=== PATIENT | female | born 1950 | race Asian ===

== ENCOUNTER → 2018-05-04 | Outpatient (CLI) | payer MEDICARE, OTHER | END | disposition home or self-care (01) | LOC: RADPV 08:25 | PROVIDERS: ATTEND Internal Medicine | DX: I07.1 Rheumatic tricuspid insufficiency (principal) | CPT/HCPCS: 93306 ==

== ENCOUNTER → 2018-05-08 | Outpatient (CLI) | payer MEDICARE, OTHER | END | disposition home or self-care (01) | LOC: EDBD → RADMN 08:47 | PROVIDERS: ATTEND Hospitalist | DX: Z13.6 Encounter for screening for cardiovascular disorders (principal); I10 Essential (primary) hypertension; Z82.49 Family history of ischemic heart disease and other diseases of the circulatory system | CPT/HCPCS: 76705 ==

== ENCOUNTER → 2023-08-31 | Outpatient (CLI) | payer MEDICARE, OTHER ==
[~2023-08-31] MED LIST: ALBU18HF12 IH; ASPI-1444 PO; CIPR250T6 PO; EMPA25TA3 PO; HYDR25TA84 PO; METF-1211 PO; PRED-554 PO; ROSU20TA73 PO
== END | disposition home or self-care (01) ==
LOC: RADMN 11:08
PROVIDERS: ATTEND Internal Medicine
DX: I70.0 Atherosclerosis of aorta (principal); I51.7 Cardiomegaly; R05.9 Cough, unspecified
CPT/HCPCS: 71046